=== PATIENT | female | born 1950 | race Caucasian/White ===

== ENCOUNTER → 2024-04-29 11:11 | Outpatient (CLI) | payer MEDICARE, SELFPAY ==
--- NOTE | 2024-04-29 11:13 | DI.RAD.S_ITS ---
PROCEDURE: XR DEXA AXIAL SKELETON INDICATIONS: LEFT THYROID NODULE / SCREENING FOR OSTEOPOROSIS COMPARISON: None. FINDINGS: Lumbar Spine: Bone mineral density 0.86 g/cm2, T score -1.5,. Left Hip: Bone mineral density 0.82 g/cm2, T score -1,. Left Femoral Neck: Bone mineral density 0.66 g/cm2, T score -1.8,. Left Forearm: Bone mineral density 0.63 g/cm2, T score -1,. Fracture Risk Calculation (when applicable): 10-year fracture risk of a major osteoporotic fracture 12 percent and of a hip fracture 2.5 percent. (T score greater or equal to -1.0 to: NORMAL) (T score from -1.1 to -2.4: OSTEOPENIA) (T score less than or equal to -2.5: OSTEOPOROSIS) IMPRESSION: Osteopenia with fracture risk as above. Follow-up guidelines as follows: Osteoporosis: Consider a repeat DEXA and Vertebral Fracture Assessment (VFA) exam in 2 years or sooner if medically necessary, to reassess this patient's status. Osteopenia: Consider a repeat DEXA in 2-3 years to reassess this patient's status, or if there is a new clinical indication. Normal: Consider a repeat DEXA in 5 years or sooner, or if there is a new clinical indication. All treatment decisions require clinical judgment and consideration of individual patient factors, including patient preferences, comorbidities, previous drug use, risk factors not captured in the FRAX model (e.g., frailty, falls, vitamin D deficiency, increased bone turnover, interval significant decline in bone density ) and possible under- or over-estimation of fracture risk by FRAX. In addition, the NOF Guide recommends that FDA-approved medical therapies be considered in postmenopausal women and men age >= 50 years with a: * Hip or vertebral (clinical or morphometric) fracture * T-score of <=-2.5 at the spine or hip * Ten-year fracture probability by FRAX of >= 3% for hip fracture or >=20% for major osteoporotic fracture. People with diagnosed cases of osteoporosis or at high risk for fracture should have regular bone mineral density tests. For patients eligible for Medicare, routine testing is allowed once every 2 years. The testing frequency can be increased to one year for patients who have rapidly progressing disease, those who are receiving or discontinuing medical therapy to restore bone mass, or have additional risk factors. Dictated by: Marck Matute M.D. on 04/29/2024 at 16:24 Approved by: Marck Matute M.D. on 04/29/2024 at 16:24
--- NOTE | 2024-04-29 11:13 | DI.US.S_ITS ---
PROCEDURE: US THYROID INDICATIONS: LEFT THYROID NODULE TECHNIQUE: Real-time scanning was performed of the thyroid gland, with image documentation. COMPARISON: [facility], CT, CT CHEST ABDOMEN PELVIS WITH CONTRAST, 01/24/2024, 12:49. FINDINGS: Thyroid: Right lobe measures 4.5 x 2.4 x 1.8 cm. Left lobe measures 5.5 x 1.9 x 1.8 cm. Isthmus is 0.6 cm thick. Echotexture is homogeneous. Nodule number: 1 Location: Left inferior pole Size: 1.5 x 1.0 x 1.2 cm. Composition: Cystic Echogenicity: Anechoic Shape: wider than tall. Margins: Smooth Echogenic foci: None Total points: 0 ACR TI-RADS category: TR 1 Nodule number: 2 Location: Right superior pole Size: 1.3 x 0.6 x 1.0 cm. Composition: Solid Echogenicity: Isoechoic Shape: wider than tall. Margins: Smooth Echogenic foci: None Total points: 3 ACR TI-RADS category: TR 3 IMPRESSION: Bilateral thyroid nodules, for which no further follow-up is necessary. ACR TI-RADS definitions and recommendations: TI-RADS 1 (benign): 0 points. FNA not needed. TI-RADS 2 (not suspicious): 2 points. FNA not needed. TI-RADS 3: 3 points. * FNA if 2.5 cm or larger, follow up if 1.5 cm or larger (at 1, 3, and 5 years). TI-RADS 4: 4-6 points. * FNA if 1.5 cm or larger, follow up if 1 cm or larger (at 1, 2, 3, and 5 years). TI-RADS 5: 7 points or more. * FNA if 1 cm or larger, follow up if 0.5 cm or larger (every year for 5 years). Dictated by: Doug Bailey M.D. on 04/30/2024 at 8:48 Approved by: Doug Bailey M.D. on 04/30/2024 at 8:53
== END ==
PROVIDERS: PCP Internal Medicine; Referring Provider Internal Medicine; Visit Provider Internal Medicine
DX: Z78.0 Asymptomatic menopausal state (principal); E04.2 Nontoxic multinodular goiter; M85.89 Other specified disorders of bone density and structure, multiple sites
CPT/HCPCS: 76536; 77080; 77081

== ENCOUNTER 2024-11-18 21:25 | Inpatient (IN) | payer MEDICARE, SELFPAY ==
[2024-11-18] VITALS (7 sets, daily range): BP systolic 81–98; BP diastolic 56–59; PULSE 71–108; RESP 22–36; TEMP 36.3; O2SAT 95–99; BMI 31.6
[2024-11-18 22:17] LABS: Hematocrit 45.7 % (36-46); Hemoglobin 15.3 g/dL (12.0-16.0); Lymphocytes Absolute Auto 1400 /uL (1100-4500); Mean Corpuscular HGB Conc 33.5 % (30-36); Mean Corpuscular Hemoglobin 29.5 PG (26-34); Mean Corpuscular Volume 88.1 fL (80-100); Platelet Count 626 X10^3/uL (150-400)
[2024-11-18 22:22] LABS: INR 1.2 (0.9-1.3); Prothrombin Time 14.1 SECONDS (9.4-12.5)
[2024-11-18 22:25] LABS: PTT Partial Thromboplastin Tim 35 SECONDS (25.1-36.5)
[2024-11-18 22:27] LABS: Alanine Aminotransferase 45 IU/L (<35); Albumin 4.0 g/dL (3.5-5.0); Albumin Globulin Ratio 1.3 (1.0-2.8); Alkaline Phosphatase 79 U/L (38-126); Blood Urea Nitrogen 27 mg/dL (7-17); Calcium 9.9 mg/dL (8.4-10.2); Carbon Dioxide 19 mmol/L (22-32); Chloride 102 mmol/L (98-107); Estimated Glomerular Filt Rate 41 mL/min (>60); Globulin 3.1 g/dL (1.7-4.1); Glucose 124 mg/dL (70-99); HEMOLYSIS < 15 (0-50); Lipase 33 U/L (23-300); Potassium 3.2 mmol/L (3.4-5.1); Sodium 139 mmol/L (137-145); Total Protein 7.1 g/dL (6.3-8.2)
[2024-11-18 22:28] LABS: Creatine Kinase 39 U/L (30-135); Magnesium 2.4 mg/dL (1.6-2.3)
[2024-11-18 22:31] LABS: Add Manual Diff / Slide Review SLIDE REVIEW
[2024-11-18 22:34] LABS: RBC Morphology Normal Morphology
[2024-11-18 22:39] LABS: NT-proBNP (BNP-Adult 18+) 2340 pg/mL (<450); Troponin I 0.025 ng/mL (0.01-0.034)
[2024-11-18] MEDS: SODIUM CHLORIDE 0.9% 1,000 ML 1000 ML IV ×2 (22:55→23:21)
[2024-11-18 23:10] LABS: Lactate (Lactic Acid) 4.5 mmol/L (0.7-2.1)
[2024-11-19] VITALS (135 sets, daily range): BP systolic 53–169; BP diastolic 31–96; PULSE 105–134; RESP 8–38; TEMP 36.3–37.3; O2SAT 32–100; BMI 31.6
[2024-11-19 00:29] LABS: Reflexed Lactate in 2 Hours Y
[2024-11-19] MEDS: POTASSIUM CHLORIDE IN WATER 10 MEQ/100 ML PIGGYBACK 100 MEQ IV (00:33)
[2024-11-19] MEDS: LACTATED RINGERS 1,000 ML 42 ML IV ×4 (01:15→04:59)
[2024-11-19] MEDS: CEFAZOLIN 2 GM/100 ML PREMIX 100 ML IV (01:23)
[2024-11-19] MEDS: ACETAMINOPHEN IV 1,000 MG/100 ML VIAL 400 MG IV (03:08)
[2024-11-19] MEDS: PIPERACILLIN/TAZO 4.5 GM in SODIUM CHLORIDE 0.9% 100 ML IV (03:12)
[2024-11-19 06:51] LABS: Add Manual Diff / Slide Review NO; Hematocrit 42.0 % (36-46); Hemoglobin 14.0 g/dL (12.0-16.0); Lymphocytes Absolute Auto 1100 /uL (1100-4500); Mean Corpuscular HGB Conc 33.3 % (30-36); Mean Corpuscular Hemoglobin 29.9 PG (26-34); Mean Corpuscular Volume 89.6 fL (80-100); Platelet Count 544 X10^3/uL (150-400)
[2024-11-19 06:59] LABS: PTT Partial Thromboplastin Tim 30 SECONDS (25.1-36.5)
[2024-11-19 07:02] LABS: Blood Urea Nitrogen 28 mg/dL (7-17); Calcium 8.0 mg/dL (8.4-10.2); Carbon Dioxide 17 mmol/L (22-32); Chloride 108 mmol/L (98-107); Estimated Glomerular Filt Rate 52 mL/min (>60); Glucose 121 mg/dL (70-99); HEMOLYSIS 20 (0-50); Potassium 4.4 mmol/L (3.4-5.1); Sodium 137 mmol/L (137-145)
[2024-11-19] MEDS: LACTATED RINGERS 1,000 ML 1000 ML IV (07:11)
[2024-11-19] MEDS: fentaNYL 1,000 MCG in DEXTROSE 5% IN WATER 230 ML 15.082 MCG IV (08:20)
[2024-11-19] MEDS: LACTATED RINGERS 1,000 ML 125 ML IV ×2 (08:44→16:12)
[2024-11-19] MEDS: PIPERACILLIN/TAZO 3.375 GM in SODIUM CHLORIDE 0.9% 100 ML IV ×3 (08:45→23:20)
[2024-11-19] MEDS: ENOXAPARIN 40 MG/0.4 ML SYRINGE SUBCUT (08:45)
[2024-11-19 08:47] LABS: Alanine Aminotransferase 29 IU/L (<35); Albumin 1.9 g/dL (3.5-5.0); Albumin Globulin Ratio 0.9 (1.0-2.8); Alkaline Phosphatase 40 U/L (38-126); Blood Urea Nitrogen 29 mg/dL (7-17); Calcium 8.3 mg/dL (8.4-10.2); Carbon Dioxide 18 mmol/L (22-32); Chloride 109 mmol/L (98-107); Estimated Glomerular Filt Rate 60 mL/min (>60); Globulin 2.1 g/dL (1.7-4.1); Glucose 101 mg/dL (70-99); HEMOLYSIS 39 (0-50); Magnesium 2.2 mg/dL (1.6-2.3); Potassium 4.9 mmol/L (3.4-5.1); Sodium 135 mmol/L (137-145); Total Protein 4.0 g/dL (6.3-8.2)
[2024-11-19 08:48] LABS: Add Manual Diff / Slide Review NO; Hematocrit 44.2 % (36-46); Hemoglobin 14.7 g/dL (12.0-16.0); Lactate (Lactic Acid) 4.2 mmol/L (0.7-2.1); Lymphocytes Absolute Auto 1500 /uL (1100-4500); Mean Corpuscular HGB Conc 33.1 % (30-36); Mean Corpuscular Hemoglobin 29.4 PG (26-34); Mean Corpuscular Volume 88.7 fL (80-100); Platelet Count 523 X10^3/uL (150-400)
[2024-11-19] MEDS: NOREPINEPHRINE BITARTRATE/D5W 4 MG/250 ML PLAST..BAG 32.319 MG IV (09:09)
[2024-11-19 09:35] LABS: MRSA (Nasal) PCR NOT DETECTED (Not Detect)
[2024-11-19 09:44] LABS: Blood Gas Collection Site Arterial Line; Blood Gas Mode Pressure Control; Delivery System Adult Ventilator; HCO3 ABG 18 mmol/L (23-27); Oxygen Saturation ABG 99 % (95-100); PCO2 ABG 35.9 mmHg (35-45); PO2 ABG 132 mmHg (80-100); TCO2 ABG 17 mmol/L (23-27)
[2024-11-19 10:06] LABS: Reflexed Lactate in 2 Hours Y
[2024-11-19] MEDS: PANTOPRAZOLE 40 MG VIAL IV (10:49)
[2024-11-19 11:05] LABS: Lactate 2HR (Lactic Acid Rflx) 3.2 mmol/L (0.7-2.1)
[2024-11-19 11:24] LABS: Procalcitonin 35.4 ng/mL (<0.5)
[2024-11-19] MEDS: ALBUMIN HUMAN 12.5 GM/250 ML VIAL IV (11:44)
[2024-11-19] MEDS: CHLORHEXIDINE GLUCONATE 15 ML CUP PO ×3 (11:44→23:23)
[2024-11-19] MEDS: VASOPRESSIN 40 UNIT in SODIUM CHLORIDE 0.9% 100 ML 4.5 UNIT IV (11:54)
[2024-11-19] MEDS: NOREPINEPHRINE BITARTRATE/D5W 4 MG/250 ML PLAST..BAG 25.855 MG IV (13:30)
[2024-11-19 14:22] LABS: Blood Gas Collection Site Arterial Line; HCO3 ABG 16 mmol/L (23-27); Oxygen Saturation ABG 98 % (95-100); PCO2 ABG 26.3 mmHg (35-45); PO2 ABG 101 mmHg (80-100); TCO2 ABG 16 mmol/L (23-27)
[2024-11-19 14:36] LABS: Lactate (Lactic Acid) 3.3 mmol/L (0.7-2.1)
[2024-11-19 15:56] LABS: Reflexed Lactate in 2 Hours Y
[2024-11-19 20:36] LABS: Lactate 2HR (Lactic Acid Rflx) 2.9 mmol/L (0.7-2.1)
[2024-11-19 20:57] LABS: Hematocrit 38.0 % (36-46); Hemoglobin 13.0 g/dL (12.0-16.0); Mean Corpuscular HGB Conc 34.2 % (30-36); Mean Corpuscular Hemoglobin 30.0 PG (26-34); Mean Corpuscular Volume 87.7 fL (80-100); Platelet Count 482 X10^3/uL (150-400)
[2024-11-19 21:03] LABS: Add Manual Diff / Slide Review YES
[2024-11-19 21:04] LABS: Alanine Aminotransferase 89 IU/L (<35); Albumin 2.2 g/dL (3.5-5.0); Albumin Globulin Ratio 1.0 (1.0-2.8); Alkaline Phosphatase 48 U/L (38-126); Blood Urea Nitrogen 35 mg/dL (7-17); Calcium 7.8 mg/dL (8.4-10.2); Carbon Dioxide 21 mmol/L (22-32); Chloride 106 mmol/L (98-107); Estimated Glomerular Filt Rate 30 mL/min (>60); Globulin 2.3 g/dL (1.7-4.1); Glucose 71 mg/dL (70-99); HEMOLYSIS < 15 (0-50); Magnesium 2.2 mg/dL (1.6-2.3); Phosphorous 3.3 mg/dL (2.8-4.1); Potassium 4.7 mmol/L (3.4-5.1); Sodium 135 mmol/L (137-145); Total Protein 4.5 g/dL (6.3-8.2)
[2024-11-19 21:13] LABS: Band Neutrophils Percent 35.0 % (3-7); Lymphocytes Percent Manual 23.0 % (25-45); Monocytes Percent Manual 7.0 % (2-11); Neutrophils Absolute Manual 5880 /uL (3000-5900); Segmented Neutrophils Percent 35.0 % (38-70); Total Cells Counted 100
[2024-11-19 21:14] LABS: RBC Morphology Normal Morphology
[2024-11-19 21:30] LABS: INR 1.9 (0.9-1.3); Prothrombin Time 21.6 SECONDS (9.4-12.5)
[2024-11-19 21:33] LABS: PTT Partial Thromboplastin Tim 44 SECONDS (25.1-36.5)
[2024-11-19] MEDS: DEXTROSE 5%-LACTATED RINGERS 1,000 ML 125 ML IV (21:43)
[2024-11-20] VITALS (109 sets, daily range): BP systolic 80–133; BP diastolic 51–72; PULSE 87–133; RESP 0–22; TEMP 36.3–38.9; O2SAT 93–98
[2024-11-20] MEDS: fentaNYL 1,000 MCG in DEXTROSE 5% IN WATER 230 ML 15.082 MCG IV ×2 (01:03→17:45)
[2024-11-20 04:59] LABS: Blood Gas Collection Site Arterial Line; HCO3 ABG 18 mmol/L (23-27); Oxygen Saturation ABG 97 % (95-100); PCO2 ABG 23.5 mmHg (35-45); PO2 ABG 82 mmHg (80-100); TCO2 ABG 17 mmol/L (23-27)
[2024-11-20] MEDS: DEXTROSE 5%-LACTATED RINGERS 1,000 ML 125 ML IV ×2 (05:29→14:09)
[2024-11-20] MEDS: PIPERACILLIN/TAZO 3.375 GM in SODIUM CHLORIDE 0.9% 100 ML IV ×2 (06:20→16:04)
[2024-11-20] MEDS: CHLORHEXIDINE GLUCONATE 15 ML CUP PO ×3 (06:20→18:45)
[2024-11-20 06:41] LABS: Blood Urea Nitrogen 42 mg/dL (7-17); Calcium 7.8 mg/dL (8.4-10.2); Carbon Dioxide 19 mmol/L (22-32); Chloride 106 mmol/L (98-107); Estimated Glomerular Filt Rate 21 mL/min (>60); Glucose 108 mg/dL (70-99); HEMOLYSIS < 15 (0-50); Magnesium 2.4 mg/dL (1.6-2.3); Potassium 4.4 mmol/L (3.4-5.1); Sodium 135 mmol/L (137-145)
[2024-11-20 06:53] LABS: Hematocrit 35.7 % (36-46); Hemoglobin 12.1 g/dL (12.0-16.0); Mean Corpuscular HGB Conc 33.9 % (30-36); Mean Corpuscular Hemoglobin 29.7 PG (26-34); Mean Corpuscular Volume 87.6 fL (80-100); Platelet Count 462 X10^3/uL (150-400)
[2024-11-20 06:55] LABS: Add Manual Diff / Slide Review YES
[2024-11-20 07:06] LABS: Atypical Lymphocytes Percent 2.0 %; Band Neutrophils Percent 15.0 % (3-7); Lymphocytes Percent Manual 21.0 % (25-45); Monocytes Percent Manual 4.0 % (2-11); Neutrophils Absolute Manual 8249 /uL (3000-5900); RBC Morphology Normal Morphology; Segmented Neutrophils Percent 58.0 % (38-70); Total Cells Counted 100
[2024-11-20] MEDS: NOREPINEPHRINE BITARTRATE/D5W 4 MG/250 ML PLAST..BAG 22.623 MG IV (08:52)
[2024-11-20] MEDS: LACTATED RINGERS 1,000 ML 1000 ML IV (09:00)
[2024-11-20 11:02] LABS: Alanine Aminotransferase 67 IU/L (<35); Albumin 1.9 g/dL (3.5-5.0); Albumin Globulin Ratio 0.8 (1.0-2.8); Alkaline Phosphatase 48 U/L (38-126); Globulin 2.4 g/dL (1.7-4.1); HEMOLYSIS < 15 (0-50); Total Protein 4.3 g/dL (6.3-8.2)
[2024-11-20 11:04] LABS: Lactate (Lactic Acid) 3.3 mmol/L (0.7-2.1)
[2024-11-20] MEDS: PANTOPRAZOLE 40 MG VIAL IV (11:12)
[2024-11-20] MEDS: HYDROMORPHONE 1 MG INJ IV (12:06)
[2024-11-20 12:23] LABS: Reflexed Lactate in 2 Hours Y
[2024-11-20] MEDS: ACETAMINOPHEN IV 1,000 MG/100 ML VIAL 400 MG IV (12:25)
[2024-11-20] MEDS: SODIUM BICARB 8.4% VIAL 150 MEQ in DEXTROSE 5% WATER 1,000 ML 75 MEQ IV (12:52)
[2024-11-20 13:18] LABS: Lactate 2HR (Lactic Acid Rflx) 2.7 mmol/L (0.7-2.1)
[2024-11-20] MEDS: CARBOXYMETHYLCELLULOSE DROPS 1 DROPS EYE-BOTH (14:16)
[2024-11-20] MEDS: VASOPRESSIN 40 UNIT in SODIUM CHLORIDE 0.9% 100 ML 4.5 UNIT IV (15:26)
[2024-11-20] MEDS: ALBUMIN HUMAN 12.5 GM/250 ML VIAL IV (15:26)
[2024-11-20] MEDS: NOREPINEPHRINE BITARTRATE/D5W 4 MG/250 ML PLAST..BAG 32.319 MG IV (16:32)
[2024-11-20 19:26] LABS: Alanine Aminotransferase 55 IU/L (<35); Albumin 2.1 g/dL (3.5-5.0); Albumin Globulin Ratio 1.0 (1.0-2.8); Alkaline Phosphatase 51 U/L (38-126); Blood Urea Nitrogen 44 mg/dL (7-17); Calcium 7.3 mg/dL (8.4-10.2); Carbon Dioxide 23 mmol/L (22-32); Chloride 102 mmol/L (98-107); Estimated Glomerular Filt Rate 21 mL/min (>60); Globulin 2.2 g/dL (1.7-4.1); Glucose 130 mg/dL (70-99); HEMOLYSIS < 15 (0-50); Lactate (Lactic Acid) 2.7 mmol/L (0.7-2.1); Potassium 3.8 mmol/L (3.4-5.1); Sodium 133 mmol/L (137-145); Total Protein 4.3 g/dL (6.3-8.2)
[2024-11-20 20:44] LABS: Reflexed Lactate in 2 Hours Y
[2024-11-20] MEDS: SODIUM BICARB 8.4% VIAL 150 MEQ in DEXTROSE 5% WATER 1,000 ML IV (21:11)
[2024-11-20 21:57] LABS: Blood Gas Collection Site Arterial Line; Blood Gas Mode SIMV/PC; Delivery System Adult Ventilator; HCO3 ABG 25 mmol/L (23-27); Oxygen Saturation ABG 96 % (95-100); PCO2 ABG 34.4 mmHg (35-45); PEEP 5; PO2 ABG 77 mmHg (80-100); TCO2 ABG 23 mmol/L (23-27)
[2024-11-20 21:58] LABS: Lactate 2HR (Lactic Acid Rflx) 2.9 mmol/L (0.7-2.1)
[2024-11-21] VITALS (86 sets, daily range): BP systolic 97–146; BP diastolic 53–79; PULSE 74–97; RESP 10–30; TEMP 36.5; O2SAT 93–99
[2024-11-21] MEDS: PIPERACILLIN/TAZO 3.375 GM in SODIUM CHLORIDE 0.9% 100 ML IV ×3 (00:03→20:14)
[2024-11-21] MEDS: CHLORHEXIDINE GLUCONATE 15 ML CUP PO ×2 (00:06→05:05)
[2024-11-21] MEDS: NOREPINEPHRINE BITARTRATE/D5W 4 MG/250 ML PLAST..BAG 9.696 MG IV (03:26)
[2024-11-21] MEDS: SODIUM BICARB 8.4% VIAL 150 MEQ in DEXTROSE 5% WATER 1,000 ML IV (04:44)
[2024-11-21 05:14] LABS: Add Manual Diff / Slide Review NO; Hematocrit 25.3 % (36-46); Hemoglobin 8.7 g/dL (12.0-16.0); Lymphocytes Absolute Auto 1300 /uL (1100-4500); Mean Corpuscular HGB Conc 34.4 % (30-36); Mean Corpuscular Hemoglobin 29.7 PG (26-34); Mean Corpuscular Volume 86.2 fL (80-100); Platelet Count 281 X10^3/uL (150-400)
[2024-11-21 05:20] LABS: Blood Urea Nitrogen 42 mg/dL (7-17); Calcium 7.3 mg/dL (8.4-10.2); Carbon Dioxide 28 mmol/L (22-32); Chloride 98 mmol/L (98-107); Estimated Glomerular Filt Rate 28 mL/min (>60); Glucose 114 mg/dL (70-99); HEMOLYSIS < 15 (0-50); Potassium 3.3 mmol/L (3.4-5.1); Sodium 133 mmol/L (137-145)
[2024-11-21 05:40] LABS: Magnesium 2.2 mg/dL (1.6-2.3)
[2024-11-21 05:54] LABS: Blood Gas Collection Site Arterial Line; Blood Gas Mode SIMV/PC; Delivery System Adult Ventilator; HCO3 ABG 25 mmol/L (23-27); Oxygen Saturation ABG 96 % (95-100); PCO2 ABG 34.4 mmHg (35-45); PEEP 5; PO2 ABG 77 mmHg (80-100); TCO2 ABG 23 mmol/L (23-27)
[2024-11-21] MEDS: PANTOPRAZOLE 40 MG VIAL IV (09:53)
[2024-11-21] MEDS: POTASSIUM CHLORIDE IN WATER 10 MEQ/100 ML PIGGYBACK 100 MEQ IV ×8 (11:21→21:47)
[2024-11-21] MEDS: BENZOCAINE/MENTHOL 1 LOZ PKT 1 EACH PO ×2 (11:21→16:44)
[2024-11-21] MEDS: ENOXAPARIN 30 MG/0.3 ML SYRINGE SUBCUT (11:21)
[2024-11-21] MEDS: ONDANSETRON 4 MG/2 ML INJ IV ×2 (14:33→20:14)
[2024-11-21] MEDS: LACTATED RINGERS 1,000 ML 80 ML IV (16:44)
[2024-11-21 17:24] LABS: Blood Urea Nitrogen 35 mg/dL (7-17); Calcium 7.6 mg/dL (8.4-10.2); Carbon Dioxide 33 mmol/L (22-32); Chloride 99 mmol/L (98-107); Estimated Glomerular Filt Rate 42 mL/min (>60); Glucose 79 mg/dL (70-99); HEMOLYSIS < 15 (0-50); Potassium 3.2 mmol/L (3.4-5.1); Sodium 134 mmol/L (137-145)
[2024-11-21] MEDS: HYDROMORPHONE 1 MG INJ IV (18:24)
[2024-11-21] MEDS: DEXTROSE 5%-LACTATED RINGERS 1,000 ML 84 ML IV (21:05)
[2024-11-21 21:29] LABS: Add Manual Diff / Slide Review NO; Hematocrit 24.9 % (36-46); Hemoglobin 8.6 g/dL (12.0-16.0); Lymphocytes Absolute Auto 1200 /uL (1100-4500); Mean Corpuscular HGB Conc 34.7 % (30-36); Mean Corpuscular Hemoglobin 29.6 PG (26-34); Mean Corpuscular Volume 85.5 fL (80-100); Platelet Count 250 X10^3/uL (150-400)
[2024-11-21 21:35] LABS: INR 1.1 (0.9-1.3); Prothrombin Time 12.4 SECONDS (9.4-12.5)
[2024-11-21 21:37] LABS: PTT Partial Thromboplastin Tim 35 SECONDS (25.1-36.5)
[2024-11-21 21:39] LABS: Alanine Aminotransferase 44 IU/L (<35); Albumin 2.1 g/dL (3.5-5.0); Albumin Globulin Ratio 0.8 (1.0-2.8); Alkaline Phosphatase 64 U/L (38-126); Blood Urea Nitrogen 31 mg/dL (7-17); Calcium 7.8 mg/dL (8.4-10.2); Carbon Dioxide 32 mmol/L (22-32); Chloride 101 mmol/L (98-107); Estimated Glomerular Filt Rate 48 mL/min (>60); Globulin 2.5 g/dL (1.7-4.1); Glucose 61 mg/dL (70-99); HEMOLYSIS < 15 (0-50); Magnesium 2.1 mg/dL (1.6-2.3); Phosphorous 3.3 mg/dL (2.8-4.1); Potassium 3.5 mmol/L (3.4-5.1); Sodium 136 mmol/L (137-145); Total Protein 4.6 g/dL (6.3-8.2)
[2024-11-21] MEDS: ACETAMINOPHEN IV 1,000 MG/100 ML VIAL 400 MG IV (23:26)
[2024-11-22] VITALS (87 sets, daily range): BP systolic 106–174; BP diastolic 53–78; PULSE 74–96; RESP 13–31; TEMP 36.1–36.5; O2SAT 95–98
[2024-11-22 00:32] LABS: Alanine Aminotransferase 42 IU/L (<35); Albumin 2.0 g/dL (3.5-5.0); Albumin Globulin Ratio 0.8 (1.0-2.8); Alkaline Phosphatase 60 U/L (38-126); Blood Urea Nitrogen 29 mg/dL (7-17); Calcium 7.7 mg/dL (8.4-10.2); Carbon Dioxide 30 mmol/L (22-32); Chloride 103 mmol/L (98-107); Estimated Glomerular Filt Rate 49 mL/min (>60); Globulin 2.4 g/dL (1.7-4.1); Glucose 67 mg/dL (70-99); HEMOLYSIS < 15 (0-50); Potassium 3.4 mmol/L (3.4-5.1); Sodium 136 mmol/L (137-145); Total Protein 4.4 g/dL (6.3-8.2)
[2024-11-22] MEDS: DEXTROSE 10 % IN WATER 100 ML 1200 ML IV (01:28)
[2024-11-22] MEDS: ONDANSETRON 4 MG/2 ML INJ IV ×2 (01:36→04:58)
[2024-11-22] MEDS: SODIUM CHLORIDE 0.9% FLUSH 10 ML IV ×5 (01:37→23:35)
[2024-11-22] MEDS: PIPERACILLIN/TAZO 3.375 GM in SODIUM CHLORIDE 0.9% 100 ML IV ×3 (04:21→20:22)
[2024-11-22 04:50] LABS: Add Manual Diff / Slide Review NO; Hematocrit 24.7 % (36-46); Hemoglobin 8.4 g/dL (12.0-16.0); Lymphocytes Absolute Auto 1000 /uL (1100-4500); Mean Corpuscular HGB Conc 34.1 % (30-36); Mean Corpuscular Hemoglobin 29.3 PG (26-34); Mean Corpuscular Volume 86.2 fL (80-100); Platelet Count 242 X10^3/uL (150-400)
[2024-11-22 05:06] LABS: Lactate (Lactic Acid) 1.3 mmol/L (0.7-2.1)
[2024-11-22 05:21] LABS: Alanine Aminotransferase 42 IU/L (<35); Albumin 2.1 g/dL (3.5-5.0); Albumin Globulin Ratio 0.9 (1.0-2.8); Alkaline Phosphatase 64 U/L (38-126); Blood Urea Nitrogen 26 mg/dL (7-17); Calcium 7.9 mg/dL (8.4-10.2); Carbon Dioxide 31 mmol/L (22-32); Chloride 103 mmol/L (98-107); Estimated Glomerular Filt Rate 50 mL/min (>60); Globulin 2.4 g/dL (1.7-4.1); Glucose 71 mg/dL (70-99); HEMOLYSIS < 15 (0-50); Magnesium 2.1 mg/dL (1.6-2.3); Phosphorous 3.0 mg/dL (2.8-4.1); Potassium 3.3 mmol/L (3.4-5.1); Sodium 137 mmol/L (137-145); Total Protein 4.5 g/dL (6.3-8.2)
[2024-11-22] MEDS: POTASSIUM CHLORIDE IN WATER 10 MEQ/100 ML PIGGYBACK 100 MEQ IV ×4 (07:59→11:15)
[2024-11-22] MEDS: DEXTROSE 5%-LACTATED RINGERS 1,000 ML 84 ML IV (09:12)
[2024-11-22] MEDS: ACETAMINOPHEN 325 MG TABLET 650 MG PO (15:32)
[2024-11-22] MEDS: TRAZODONE 50 MG TABLET PO (21:42)
[2024-11-23] VITALS (38 sets, daily range): BP systolic 122–157; BP diastolic 56–68; PULSE 78–97; RESP 17–32; TEMP 35.7–36.8; O2SAT 93–97
[2024-11-23 00:24] LABS: Alanine Aminotransferase 41 IU/L (<35); Albumin 2.3 g/dL (3.5-5.0); Albumin Globulin Ratio 0.9 (1.0-2.8); Alkaline Phosphatase 77 U/L (38-126); Blood Urea Nitrogen 18 mg/dL (7-17); Calcium 8.4 mg/dL (8.4-10.2); Carbon Dioxide 28 mmol/L (22-32); Chloride 105 mmol/L (98-107); Estimated Glomerular Filt Rate > 60 mL/min (>60); Globulin 2.7 g/dL (1.7-4.1); Glucose 59 mg/dL (70-99); HEMOLYSIS < 15 (0-50); Potassium 3.1 mmol/L (3.4-5.1); Sodium 139 mmol/L (137-145); Total Protein 5.0 g/dL (6.3-8.2)
[2024-11-23] MEDS: DEXTROSE 10 % IN WATER 100 ML 1200 ML IV (00:54)
[2024-11-23] MEDS: POTASSIUM CHLORIDE IN WATER 10 MEQ/100 ML PIGGYBACK 100 MEQ IV ×6 (01:18→06:43)
[2024-11-23] MEDS: PIPERACILLIN/TAZO 3.375 GM in SODIUM CHLORIDE 0.9% 100 ML IV ×3 (04:09→21:24)
[2024-11-23] MEDS: SODIUM CHLORIDE 0.9% FLUSH 10 ML IV ×2 (05:37→21:24)
[2024-11-23 06:29] LABS: Alanine Aminotransferase 41 IU/L (<35); Albumin 2.3 g/dL (3.5-5.0); Albumin Globulin Ratio 0.8 (1.0-2.8); Alkaline Phosphatase 83 U/L (38-126); Blood Urea Nitrogen 16 mg/dL (7-17); Calcium 8.4 mg/dL (8.4-10.2); Carbon Dioxide 27 mmol/L (22-32); Chloride 105 mmol/L (98-107); Estimated Glomerular Filt Rate > 60 mL/min (>60); Globulin 2.8 g/dL (1.7-4.1); Glucose 56 mg/dL (70-99); HEMOLYSIS < 15 (0-50); Potassium 3.6 mmol/L (3.4-5.1); Sodium 137 mmol/L (137-145); Total Protein 5.1 g/dL (6.3-8.2)
[2024-11-23] MEDS: ACETAMINOPHEN 325 MG TABLET 650 MG PO (14:11)
[2024-11-23 14:14] LABS: Blood Urea Nitrogen 13 mg/dL (7-17); Calcium 8.6 mg/dL (8.4-10.2); Carbon Dioxide 28 mmol/L (22-32); Chloride 105 mmol/L (98-107); Estimated Glomerular Filt Rate > 60 mL/min (>60); Glucose 80 mg/dL (70-99); HEMOLYSIS < 15 (0-50); Potassium 3.5 mmol/L (3.4-5.1); Sodium 137 mmol/L (137-145)
[2024-11-23] MEDS: TRAZODONE 50 MG TABLET PO (21:24)
[2024-11-24] VITALS (9 sets, daily range): BP systolic 120–151; BP diastolic 56–69; PULSE 82–160; RESP 14–18; TEMP 35.7–37.3; O2SAT 92–96
[2024-11-24] MEDS: METOPROLOL TARTRATE 5 MG/5 ML INJ IV (00:32)
[2024-11-24] MEDS: PIPERACILLIN/TAZO 3.375 GM in SODIUM CHLORIDE 0.9% 100 ML IV ×3 (04:26→20:21)
[2024-11-24] MEDS: ACETAMINOPHEN 325 MG TABLET 650 MG PO (04:43)
[2024-11-24] MEDS: HYDROMORPHONE 1 MG INJ IV ×2 (05:42→16:57)
[2024-11-24 13:07] LABS: Hematocrit 29.0 % (36-46); Hemoglobin 9.7 g/dL (12.0-16.0); Mean Corpuscular HGB Conc 33.6 % (30-36); Mean Corpuscular Hemoglobin 28.9 PG (26-34); Mean Corpuscular Volume 86.0 fL (80-100); Platelet Count 465 X10^3/uL (150-400)
[2024-11-24 16:07] LABS: Alanine Aminotransferase 34 IU/L (<35); Albumin 2.6 g/dL (3.5-5.0); Albumin Globulin Ratio 0.9 (1.0-2.8); Alkaline Phosphatase 90 U/L (38-126); Blood Urea Nitrogen 11 mg/dL (7-17); Calcium 8.6 mg/dL (8.4-10.2); Carbon Dioxide 27 mmol/L (22-32); Chloride 105 mmol/L (98-107); Estimated Glomerular Filt Rate > 60 mL/min (>60); Globulin 3.0 g/dL (1.7-4.1); Glucose 113 mg/dL (70-99); HEMOLYSIS 18 (0-50); Potassium 2.8 mmol/L (3.4-5.1); Sodium 138 mmol/L (137-145); Total Protein 5.6 g/dL (6.3-8.2)
[2024-11-24 16:17] LABS: NT-proBNP (BNP-Adult 18+) 2140 pg/mL (<450)
[2024-11-24 16:19] LABS: Troponin I < 0.012 ng/mL (0.01-0.034)
[2024-11-24 16:38] LABS: TSH w/ Reflex to FT4 1.43 uIU/mL (0.47-4.68)
[2024-11-24 17:14] LABS: Carcinoembryonic Antigen 0.8 ng/mL (0.1-3.0)
[2024-11-24] MEDS: POTASSIUM CHLORIDE 20 MEQ TAB 40 MEQ PO ×2 (18:31→23:40)
[2024-11-24] MEDS: TRAZODONE 50 MG TABLET PO (22:22)
[2024-11-24] MEDS: SODIUM CHLORIDE 0.9% FLUSH 10 ML IV (22:22)
[2024-11-24] MEDS: ONDANSETRON 4 MG/2 ML INJ IV (23:51)
[2024-11-25] VITALS (9 sets, daily range): BP systolic 106–145; BP diastolic 51–70; PULSE 80–95; RESP 16–20; TEMP 35.7–36.4; O2SAT 93–98
[2024-11-25 04:57] LABS: Add Manual Diff / Slide Review NO; Hematocrit 26.9 % (36-46); Hemoglobin 9.1 g/dL (12.0-16.0); Lymphocytes Absolute Auto 1400 /uL (1100-4500); Mean Corpuscular HGB Conc 33.9 % (30-36); Mean Corpuscular Hemoglobin 29.2 PG (26-34); Mean Corpuscular Volume 86.1 fL (80-100); Platelet Count 502 X10^3/uL (150-400)
[2024-11-25 05:07] LABS: Blood Urea Nitrogen 10 mg/dL (7-17); Calcium 8.5 mg/dL (8.4-10.2); Carbon Dioxide 25 mmol/L (22-32); Chloride 105 mmol/L (98-107); Estimated Glomerular Filt Rate > 60 mL/min (>60); Glucose 92 mg/dL (70-99); HEMOLYSIS < 15 (0-50); Potassium 3.3 mmol/L (3.4-5.1); Sodium 135 mmol/L (137-145)
[2024-11-25] MEDS: PIPERACILLIN/TAZO 3.375 GM in SODIUM CHLORIDE 0.9% 100 ML IV ×3 (05:35→23:19)
[2024-11-25] MEDS: HYDROMORPHONE 1 MG INJ IV (05:37)
[2024-11-25 10:04] LABS: Appearance Urine UA CLEAR; Bilirubin Urine UA NEGATIVE (NEGATIVE); Color Urine UA YELLOW; Glucose Urine UA NEGATIVE (Negative); Ketones Urine UA TRACE (NEGATIVE); Leukocyte Esterase Urine UA NEGATIVE (NEGATIVE); Nitrite Urine UA NEGATIVE (Negative); Occult Blood Urine UA TRACE-INTACT (Negative); Protein Urine UA 1+ (Negative); Specific Gravity Urine UA 1.015 (1.000-1.035); Urobilinogen Urine UA 0.2 E.U./dL (0.2)
[2024-11-25] MEDS: ENOXAPARIN 40 MG/0.4 ML SYRINGE SUBCUT (10:21)
[2024-11-25 10:23] LABS: pH Urine UA 6.5 (4.5-8.0)
[2024-11-25 10:24] LABS: Culture Indicated Urine Cult Not Indicated
[2024-11-25] MEDS: POTASSIUM CHLORIDE IN WATER 10 MEQ/100 ML PIGGYBACK 100 MEQ IV ×4 (10:30→14:28)
[2024-11-25] MEDS: ACETAMINOPHEN 325 MG TABLET 650 MG PO ×2 (13:08→21:37)
[2024-11-25] MEDS: ONDANSETRON 4 MG/2 ML INJ IV (13:34)
[2024-11-25] MEDS: NYSTATIN SUSP 500,000 UNIT/5 ML UDC 500000 UNIT PO ×2 (17:54→21:36)
[2024-11-25] MEDS: TRAZODONE 50 MG TABLET PO (21:37)
[2024-11-25] MEDS: SODIUM CHLORIDE 0.9% FLUSH 10 ML IV (21:37)
[2024-11-26] VITALS (8 sets, daily range): BP systolic 117–131; BP diastolic 45–60; PULSE 79–94; RESP 16–18; TEMP 35.8–36.6; O2SAT 93–96
[2024-11-26] MEDS: PIPERACILLIN/TAZO 3.375 GM in SODIUM CHLORIDE 0.9% 100 ML IV ×3 (08:39→23:32)
[2024-11-26] MEDS: ENOXAPARIN 40 MG/0.4 ML SYRINGE SUBCUT (08:40)
[2024-11-26] MEDS: NYSTATIN SUSP 500,000 UNIT/5 ML UDC 500000 UNIT PO ×3 (08:40→21:43)
[2024-11-26] MEDS: SODIUM CHLORIDE 0.9% FLUSH 10 ML IV ×2 (09:17→21:45)
[2024-11-26 11:24] LABS: Hematocrit 26.3 % (36-46); Hemoglobin 8.9 g/dL (12.0-16.0); Mean Corpuscular HGB Conc 33.7 % (30-36); Mean Corpuscular Hemoglobin 28.9 PG (26-34); Mean Corpuscular Volume 85.6 fL (80-100); Platelet Count 631 X10^3/uL (150-400)
[2024-11-26 11:25] LABS: Add Manual Diff / Slide Review YES
[2024-11-26 11:34] LABS: Alanine Aminotransferase 23 IU/L (<35); Albumin 2.5 g/dL (3.5-5.0); Albumin Globulin Ratio 0.9 (1.0-2.8); Alkaline Phosphatase 93 U/L (38-126); Blood Urea Nitrogen 13 mg/dL (7-17); Calcium 8.5 mg/dL (8.4-10.2); Carbon Dioxide 24 mmol/L (22-32); Chloride 106 mmol/L (98-107); Estimated Glomerular Filt Rate > 60 mL/min (>60); Globulin 2.8 g/dL (1.7-4.1); Glucose 91 mg/dL (70-99); HEMOLYSIS < 15 (0-50); Magnesium 1.6 mg/dL (1.6-2.3); Potassium 3.6 mmol/L (3.4-5.1); Sodium 135 mmol/L (137-145); Total Protein 5.3 g/dL (6.3-8.2)
[2024-11-26] MEDS: HYDROMORPHONE 1 MG INJ IV ×2 (11:46→14:33)
[2024-11-26 11:47] LABS: Band Neutrophils Percent 11.0 % (3-7); Lymphocytes Percent Manual 12.0 % (25-45); Monocytes Percent Manual 3.0 % (2-11); Neutrophils Absolute Manual 15470 /uL (3000-5900); RBC Morphology Normal Morphology; Segmented Neutrophils Percent 74.0 % (38-70); Total Cells Counted 100
[2024-11-26] MEDS: ONDANSETRON 4 MG/2 ML INJ IV (13:35)
[2024-11-26] MEDS: MAGNESIUM SULFATE 2 GM/50 ML PIGGYBACK IV (15:05)
[2024-11-26] MEDS: HYDROMORPHONE 1 MG INJ 2 MG IV (20:36)
[2024-11-26] MEDS: ACETAMINOPHEN 325 MG TABLET 650 MG PO (21:43)
[2024-11-26] MEDS: TRAZODONE 50 MG TABLET PO (21:44)
[2024-11-27] VITALS (8 sets, daily range): BP systolic 117–157; BP diastolic 56–69; PULSE 79–95; RESP 16–79; TEMP 35.9–36.6; O2SAT 92–95
[2024-11-27 05:39] LABS: Add Manual Diff / Slide Review NO; Hematocrit 26.9 % (36-46); Hemoglobin 9.0 g/dL (12.0-16.0); Lymphocytes Absolute Auto 1500 /uL (1100-4500); Mean Corpuscular HGB Conc 33.4 % (30-36); Mean Corpuscular Hemoglobin 28.7 PG (26-34); Mean Corpuscular Volume 85.7 fL (80-100); Platelet Count 707 X10^3/uL (150-400)
[2024-11-27 05:50] LABS: Alanine Aminotransferase 23 IU/L (<35); Albumin 2.6 g/dL (3.5-5.0); Albumin Globulin Ratio 0.9 (1.0-2.8); Alkaline Phosphatase 102 U/L (38-126); Blood Urea Nitrogen 15 mg/dL (7-17); Calcium 8.7 mg/dL (8.4-10.2); Carbon Dioxide 26 mmol/L (22-32); Chloride 106 mmol/L (98-107); Estimated Glomerular Filt Rate > 60 mL/min (>60); Globulin 3.0 g/dL (1.7-4.1); Glucose 76 mg/dL (70-99); HEMOLYSIS < 15 (0-50); Magnesium 2.0 mg/dL (1.6-2.3); Potassium 3.1 mmol/L (3.4-5.1); Sodium 137 mmol/L (137-145); Total Protein 5.6 g/dL (6.3-8.2)
[2024-11-27] MEDS: HYDROMORPHONE 1 MG INJ 2 MG IV (07:16)
[2024-11-27] MEDS: PIPERACILLIN/TAZO 3.375 GM in SODIUM CHLORIDE 0.9% 100 ML IV ×3 (08:35→23:28)
[2024-11-27] MEDS: NYSTATIN SUSP 500,000 UNIT/5 ML UDC 500000 UNIT PO ×3 (08:36→18:23)
[2024-11-27] MEDS: SODIUM CHLORIDE 0.9% FLUSH 10 ML IV ×2 (08:36→23:28)
[2024-11-27] MEDS: ACETAMINOPHEN 325 MG TABLET 650 MG PO (11:47)
[2024-11-27] MEDS: HYDROMORPHONE 2 MG INJ IV ×2 (12:04→16:25)
[2024-11-27] MEDS: POTASSIUM CHLORIDE IN WATER 10 MEQ/100 ML PIGGYBACK 100 MEQ IV ×4 (14:00→18:28)
[2024-11-27] MEDS: TRAZODONE 50 MG TABLET PO (23:26)
[2024-11-27] MEDS: ENOXAPARIN 40 MG/0.4 ML SYRINGE SUBCUT (23:26)
[2024-11-27] MEDS: HYDROCODONE/ACET 5/325 TABLET 1 TAB PO (23:26)
[2024-11-28 04:00] VITALS: BP 115/54; PULSE 87; RESP 18; TEMP 36.1; O2SAT 95
[2024-11-28] MEDS: ACETAMINOPHEN 325 MG TABLET 650 MG PO (04:48)
[2024-11-28] MEDS: HYDROMORPHONE 2 MG INJ IV ×2 (05:59→14:12)
[2024-11-28] MEDS: ONDANSETRON 4 MG/2 ML INJ IV (06:28)
[2024-11-28 06:51] LABS: Hematocrit 25.5 % (36-46); Hemoglobin 8.5 g/dL (12.0-16.0); Lymphocytes Absolute Auto 1300 /uL (1100-4500); Mean Corpuscular HGB Conc 33.4 % (30-36); Mean Corpuscular Hemoglobin 28.5 PG (26-34); Mean Corpuscular Volume 85.3 fL (80-100); Platelet Count 755 X10^3/uL (150-400)
[2024-11-28 06:53] LABS: Add Manual Diff / Slide Review SLIDE REVIEW
[2024-11-28 07:04] LABS: Alanine Aminotransferase 20 IU/L (<35); Albumin 2.3 g/dL (3.5-5.0); Albumin Globulin Ratio 0.8 (1.0-2.8); Alkaline Phosphatase 105 U/L (38-126); Blood Urea Nitrogen 10 mg/dL (7-17); Calcium 8.4 mg/dL (8.4-10.2); Carbon Dioxide 27 mmol/L (22-32); Chloride 105 mmol/L (98-107); Estimated Glomerular Filt Rate > 60 mL/min (>60); Globulin 3.0 g/dL (1.7-4.1); Glucose 86 mg/dL (70-99); HEMOLYSIS < 15 (0-50); Magnesium 1.9 mg/dL (1.6-2.3); Potassium 3.2 mmol/L (3.4-5.1); Sodium 134 mmol/L (137-145); Total Protein 5.3 g/dL (6.3-8.2)
[2024-11-28 07:19] LABS: Anisocytosis 1+
[2024-11-28 08:00] VITALS: BP 122/56; PULSE 87; RESP 17; TEMP 35.9; O2SAT 95
[2024-11-28] MEDS: PIPERACILLIN/TAZO 3.375 GM in SODIUM CHLORIDE 0.9% 100 ML IV ×2 (09:34→16:42)
[2024-11-28] MEDS: ENOXAPARIN 40 MG/0.4 ML SYRINGE SUBCUT (09:35)
[2024-11-28] MEDS: SODIUM CHLORIDE 0.9% FLUSH 10 ML IV ×2 (10:00→21:08)
[2024-11-28] MEDS: TRAMADOL 50 MG TABLET PO ×2 (10:47→20:44)
[2024-11-28] MEDS: ACETAMINOPHEN 325 MG TABLET 975 MG PO ×3 (11:55→20:44)
[2024-11-28 12:00] VITALS: BP 116/57; PULSE 77; RESP 19; TEMP 36.9; O2SAT 96
[2024-11-28] MEDS: POTASSIUM CHLORIDE IN WATER 10 MEQ/100 ML PIGGYBACK 100 MEQ IV ×6 (12:34→19:24)
[2024-11-28 16:00] VITALS: BP 105/58; PULSE 81; RESP 17; TEMP 37.1; O2SAT 97
[2024-11-28 19:37] VITALS: BP 111/57; PULSE 93; RESP 18; TEMP 36; O2SAT 95
[2024-11-28] MEDS: TRAZODONE 50 MG TABLET PO (20:44)
[2024-11-28 23:00] VITALS: BP 128/48; PULSE 85; RESP 18; TEMP 35.8; O2SAT 96
[2024-11-29] VITALS (11 sets, daily range): BP systolic 118–155; BP diastolic 48–81; PULSE 80–95; RESP 16–20; TEMP 35.7–36.7; O2SAT 93–98
[2024-11-29] MEDS: PIPERACILLIN/TAZO 3.375 GM in SODIUM CHLORIDE 0.9% 100 ML IV ×4 (00:15→23:21)
[2024-11-29] MEDS: TRAMADOL 50 MG TABLET PO ×2 (03:12→15:04)
[2024-11-29] MEDS: HYDROMORPHONE 2 MG INJ IV ×2 (05:45→16:19)
[2024-11-29] MEDS: ONDANSETRON 4 MG/2 ML INJ IV ×3 (05:45→16:18)
[2024-11-29 08:14] LABS: Add Manual Diff / Slide Review NO; Hematocrit 24.8 % (36-46); Hemoglobin 8.2 g/dL (12.0-16.0); Lymphocytes Absolute Auto 1100 /uL (1100-4500); Mean Corpuscular HGB Conc 33.0 % (30-36); Mean Corpuscular Hemoglobin 28.5 PG (26-34); Mean Corpuscular Volume 86.3 fL (80-100); Platelet Count 798 X10^3/uL (150-400)
[2024-11-29 08:25] LABS: Alanine Aminotransferase 18 IU/L (<35); Albumin 2.1 g/dL (3.5-5.0); Albumin Globulin Ratio 0.8 (1.0-2.8); Alkaline Phosphatase 96 U/L (38-126); Blood Urea Nitrogen 13 mg/dL (7-17); Calcium 8.4 mg/dL (8.4-10.2); Carbon Dioxide 25 mmol/L (22-32); Chloride 106 mmol/L (98-107); Estimated Glomerular Filt Rate > 60 mL/min (>60); Globulin 2.6 g/dL (1.7-4.1); Glucose 82 mg/dL (70-99); HEMOLYSIS < 15 (0-50); Magnesium 1.7 mg/dL (1.6-2.3); Potassium 3.6 mmol/L (3.4-5.1); Sodium 133 mmol/L (137-145); Total Protein 4.7 g/dL (6.3-8.2)
[2024-11-29] MEDS: ENOXAPARIN 40 MG/0.4 ML SYRINGE SUBCUT (09:38)
[2024-11-29] MEDS: ACETAMINOPHEN 325 MG TABLET 975 MG PO ×2 (09:38→20:08)
[2024-11-29] MEDS: SODIUM CHLORIDE 0.9% FLUSH 10 ML IV ×2 (09:39→20:09)
[2024-11-29] MEDS: LOPERAMIDE 2 MG CAPSULE PO (10:53)
[2024-11-29] MEDS: POTASSIUM CHLORIDE IN WATER 10 MEQ/100 ML PIGGYBACK 100 MEQ IV ×4 (10:54→15:04)
[2024-11-29] MEDS: DEXTROSE 5%-0.9% NS 1,000 ML 50 ML IV (10:56)
[2024-11-29] MEDS: MAGNESIUM CHLORIDE 64 MG TABLET 128 MG PO (15:05)
[2024-11-29] MEDS: TRAZODONE 50 MG TABLET PO (20:08)
[2024-11-29] MEDS: MELATONIN 3 MG TABLET 6 MG PO (20:09)
[2024-11-30] VITALS (7 sets, daily range): BP systolic 134–146; BP diastolic 63–82; PULSE 84–91; RESP 16–22; TEMP 35.5–36.9; O2SAT 92–96
[2024-11-30] MEDS: HYDROMORPHONE 2 MG INJ IV ×3 (03:46→22:12)
[2024-11-30] MEDS: ONDANSETRON 4 MG/2 ML INJ IV ×4 (03:48→22:12)
[2024-11-30 05:18] LABS: Hematocrit 24.5 % (36-46); Hemoglobin 8.1 g/dL (12.0-16.0); Lymphocytes Absolute Auto 1300 /uL (1100-4500); Mean Corpuscular HGB Conc 33.1 % (30-36); Mean Corpuscular Hemoglobin 28.6 PG (26-34); Mean Corpuscular Volume 86.5 fL (80-100); Platelet Count 828 X10^3/uL (150-400)
[2024-11-30 05:20] LABS: Add Manual Diff / Slide Review NO
[2024-11-30 05:24] LABS: Blood Urea Nitrogen 7 mg/dL (7-17); Calcium 8.4 mg/dL (8.4-10.2); Carbon Dioxide 25 mmol/L (22-32); Chloride 106 mmol/L (98-107); Estimated Glomerular Filt Rate > 60 mL/min (>60); Glucose 92 mg/dL (70-99); HEMOLYSIS < 15 (0-50); Magnesium 1.7 mg/dL (1.6-2.3); Potassium 3.7 mmol/L (3.4-5.1); Sodium 134 mmol/L (137-145)
[2024-11-30 05:43] LABS: RBC Morphology Normal Morphology
[2024-11-30] MEDS: ENOXAPARIN 40 MG/0.4 ML SYRINGE SUBCUT (08:16)
[2024-11-30] MEDS: LOPERAMIDE 2 MG CAPSULE PO (08:17)
[2024-11-30] MEDS: ACETAMINOPHEN 325 MG TABLET 975 MG PO (08:17)
[2024-11-30] MEDS: PIPERACILLIN/TAZO 3.375 GM in SODIUM CHLORIDE 0.9% 100 ML IV ×2 (08:18→16:52)
[2024-11-30] MEDS: SODIUM CHLORIDE 0.9% FLUSH 10 ML IV ×2 (08:18→22:12)
[2024-11-30] MEDS: MAGNESIUM SULFATE 2 GM/50 ML PIGGYBACK IV (09:57)
[2024-11-30] MEDS: KETOROLAC 30 MG/ML VIAL 15 MG IV (12:21)
[2024-11-30] MEDS: ACETAMINOPHEN IV 1,000 MG/100 ML VIAL 400 MG IV ×2 (14:47→22:11)
[2024-11-30] MEDS: DEXTROSE 5%-0.9% NS 1,000 ML 50 ML IV (14:47)
[2024-11-30] MEDS: TRAZODONE 50 MG TABLET PO (22:12)
[2024-11-30] MEDS: MELATONIN 3 MG TABLET 6 MG PO (22:12)
[2024-12-01] VITALS (10 sets, daily range): BP systolic 136–148; BP diastolic 61–85; PULSE 82–93; RESP 15–20; TEMP 35.8–36.8; O2SAT 92–94
[2024-12-01] MEDS: PIPERACILLIN/TAZO 3.375 GM in SODIUM CHLORIDE 0.9% 100 ML IV ×4 (00:31→23:10)
[2024-12-01] MEDS: ONDANSETRON 4 MG/2 ML INJ IV ×3 (05:21→16:00)
[2024-12-01] MEDS: KETOROLAC 30 MG/ML VIAL 15 MG IV (05:21)
[2024-12-01 05:32] LABS: Add Manual Diff / Slide Review NO; Hematocrit 27.0 % (36-46); Hemoglobin 8.9 g/dL (12.0-16.0); Lymphocytes Absolute Auto 1400 /uL (1100-4500); Mean Corpuscular HGB Conc 33.0 % (30-36); Mean Corpuscular Hemoglobin 28.5 PG (26-34); Mean Corpuscular Volume 86.5 fL (80-100); Platelet Count 882 X10^3/uL (150-400)
[2024-12-01 05:38] LABS: Blood Urea Nitrogen 10 mg/dL (7-17); Calcium 8.7 mg/dL (8.4-10.2); Carbon Dioxide 26 mmol/L (22-32); Chloride 105 mmol/L (98-107); Estimated Glomerular Filt Rate > 60 mL/min (>60); Glucose 94 mg/dL (70-99); HEMOLYSIS < 15 (0-50); Magnesium 2.0 mg/dL (1.6-2.3); Potassium 3.3 mmol/L (3.4-5.1); Sodium 135 mmol/L (137-145)
[2024-12-01 05:57] LABS: RBC Morphology Normal Morphology
[2024-12-01] MEDS: POTASSIUM CHLORIDE IN WATER 10 MEQ/100 ML PIGGYBACK 100 MEQ IV ×4 (07:55→12:55)
[2024-12-01] MEDS: TRAMADOL 50 MG TABLET PO ×3 (07:56→21:18)
[2024-12-01] MEDS: HYDROMORPHONE 2 MG INJ IV (09:05)
[2024-12-01] MEDS: ACETAMINOPHEN IV 1,000 MG/100 ML VIAL 400 MG IV ×3 (09:06→21:16)
[2024-12-01] MEDS: LOPERAMIDE 2 MG CAPSULE PO (09:06)
[2024-12-01] MEDS: SODIUM CHLORIDE 0.9% FLUSH 10 ML IV ×2 (09:28→21:21)
[2024-12-01] MEDS: DEXTROSE 5%-0.9% NS 1,000 ML 50 ML IV (12:58)
[2024-12-01] MEDS: TRAZODONE 50 MG TABLET PO (21:18)
[2024-12-01] MEDS: MELATONIN 3 MG TABLET 6 MG PO (21:19)
[2024-12-02] VITALS (8 sets, daily range): BP systolic 117–152; BP diastolic 48–75; PULSE 87–91; RESP 16–19; TEMP 35.9–37.1; O2SAT 93–96
[2024-12-02] MEDS: HYDROMORPHONE 2 MG INJ IV (01:27)
[2024-12-02 06:16] LABS: Blood Urea Nitrogen 11 mg/dL (7-17); Calcium 8.8 mg/dL (8.4-10.2); Carbon Dioxide 28 mmol/L (22-32); Chloride 106 mmol/L (98-107); Estimated Glomerular Filt Rate > 60 mL/min (>60); Glucose 91 mg/dL (70-99); HEMOLYSIS < 15 (0-50); Potassium 3.3 mmol/L (3.4-5.1); Sodium 137 mmol/L (137-145)
[2024-12-02] MEDS: LOPERAMIDE 2 MG CAPSULE PO (08:27)
[2024-12-02] MEDS: ACETAMINOPHEN IV 1,000 MG/100 ML VIAL 400 MG IV ×3 (08:31→21:13)
[2024-12-02] MEDS: PIPERACILLIN/TAZO 3.375 GM in SODIUM CHLORIDE 0.9% 100 ML IV ×3 (08:32→23:54)
[2024-12-02 09:49] LABS: Add Manual Diff / Slide Review NO; Hematocrit 25.8 % (36-46); Hemoglobin 8.4 g/dL (12.0-16.0); Lymphocytes Absolute Auto 1300 /uL (1100-4500); Mean Corpuscular HGB Conc 32.7 % (30-36); Mean Corpuscular Hemoglobin 28.0 PG (26-34); Mean Corpuscular Volume 85.5 fL (80-100); Platelet Count 819 X10^3/uL (150-400)
[2024-12-02 10:11] LABS: Magnesium 1.7 mg/dL (1.6-2.3)
[2024-12-02] MEDS: KETOROLAC 30 MG/ML VIAL 15 MG IV ×2 (11:20→19:44)
[2024-12-02 11:39] LABS: INR 1.1 (0.9-1.3); Prothrombin Time 12.8 SECONDS (9.4-12.5)
[2024-12-02 11:42] LABS: PTT Partial Thromboplastin Tim 29 SECONDS (25.1-36.5)
[2024-12-02 12:55] LABS: RBC Morphology Normal Morphology
[2024-12-02] MEDS: MAGNESIUM SULFATE 2 GM/50 ML PIGGYBACK IV (13:23)
[2024-12-02] MEDS: POTASSIUM CHLORIDE IN WATER 10 MEQ/100 ML PIGGYBACK 100 MEQ IV ×6 (14:16→21:13)
[2024-12-02] MEDS: TRAMADOL 50 MG TABLET PO (17:38)
[2024-12-02] MEDS: TRAZODONE 50 MG TABLET PO (21:12)
[2024-12-02] MEDS: MELATONIN 3 MG TABLET 6 MG PO (21:12)
[2024-12-02] MEDS: SODIUM CHLORIDE 0.9% FLUSH 10 ML IV (21:34)
[2024-12-02] MEDS: ONDANSETRON 4 MG/2 ML INJ IV (23:54)
[2024-12-03] VITALS (25 sets, daily range): BP systolic 105–148; BP diastolic 51–75; PULSE 79–92; RESP 12–22; TEMP 35.7–37.6; O2SAT 90–99; BMI 31.7
[2024-12-03] MEDS: KETOROLAC 30 MG/ML VIAL 15 MG IV ×2 (01:50→08:03)
[2024-12-03 06:24] LABS: Blood Urea Nitrogen 10 mg/dL (7-17); Calcium 8.8 mg/dL (8.4-10.2); Carbon Dioxide 25 mmol/L (22-32); Chloride 107 mmol/L (98-107); Estimated Glomerular Filt Rate > 60 mL/min (>60); Glucose 84 mg/dL (70-99); HEMOLYSIS < 15 (0-50); Magnesium 2.0 mg/dL (1.6-2.3); Potassium 3.9 mmol/L (3.4-5.1); Sodium 136 mmol/L (137-145)
[2024-12-03 06:42] LABS: Add Manual Diff / Slide Review NO; Hematocrit 23.1 % (36-46); Hemoglobin 7.9 g/dL (12.0-16.0); Lymphocytes Absolute Auto 1500 /uL (1100-4500); Mean Corpuscular HGB Conc 34.1 % (30-36); Mean Corpuscular Hemoglobin 28.9 PG (26-34); Mean Corpuscular Volume 84.8 fL (80-100); Platelet Count 705 X10^3/uL (150-400)
[2024-12-03] MEDS: ACETAMINOPHEN IV 1,000 MG/100 ML VIAL 400 MG IV ×2 (08:08→20:49)
[2024-12-03] MEDS: LOPERAMIDE 2 MG CAPSULE PO (08:17)
[2024-12-03] MEDS: SODIUM CHLORIDE 0.9% FLUSH 10 ML IV ×2 (08:20→20:51)
[2024-12-03] MEDS: PIPERACILLIN/TAZO 3.375 GM in SODIUM CHLORIDE 0.9% 100 ML IV ×2 (08:20→15:42)
[2024-12-03] MEDS: ONDANSETRON 4 MG/2 ML INJ IV ×2 (09:37→20:56)
[2024-12-03] MEDS: MIDAZOLAM 2 MG/2 ML VIAL IV (12:45)
[2024-12-03] MEDS: fentaNYL 100 MCG/2 ML INJ IV (13:09)
[2024-12-03] MEDS: LIDOCAINE 1% 20 ML INJ (13:13)
[2024-12-03] MEDS: LACTATED RINGERS 1,000 ML 84 ML IV ×2 (15:02→17:03)
[2024-12-03] MEDS: LACTATED RINGERS 1,000 ML 100 ML IV (19:36)
[2024-12-03] MEDS: HYDROMORPHONE 2 MG INJ IV (20:56)
[2024-12-04] VITALS (8 sets, daily range): BP systolic 130–151; BP diastolic 61–77; PULSE 91–110; RESP 16–18; TEMP 35.8–36.1; O2SAT 96–99
[2024-12-04] MEDS: PIPERACILLIN/TAZO 3.375 GM in SODIUM CHLORIDE 0.9% 100 ML IV ×4 (01:00→23:45)
[2024-12-04] MEDS: HYDROMORPHONE 2 MG INJ IV ×4 (04:20→22:28)
[2024-12-04] MEDS: LACTATED RINGERS 1,000 ML 100 ML IV ×2 (04:21→15:03)
[2024-12-04 05:42] LABS: Add Manual Diff / Slide Review NO; Hematocrit 26.2 % (36-46); Hemoglobin 8.8 g/dL (12.0-16.0); Lymphocytes Absolute Auto 900 /uL (1100-4500); Mean Corpuscular HGB Conc 33.5 % (30-36); Mean Corpuscular Hemoglobin 28.5 PG (26-34); Mean Corpuscular Volume 85.0 fL (80-100); Platelet Count 749 X10^3/uL (150-400)
[2024-12-04 05:52] LABS: Blood Urea Nitrogen 7 mg/dL (7-17); Calcium 8.9 mg/dL (8.4-10.2); Carbon Dioxide 24 mmol/L (22-32); Chloride 106 mmol/L (98-107); Estimated Glomerular Filt Rate > 60 mL/min (>60); Glucose 100 mg/dL (70-99); HEMOLYSIS < 15 (0-50); Magnesium 1.9 mg/dL (1.6-2.3); Potassium 3.9 mmol/L (3.4-5.1); Sodium 137 mmol/L (137-145); Triglycerides 102 mg/dL (35-150)
[2024-12-04 05:54] LABS: Phosphorous 3.9 mg/dL (2.8-4.1)
[2024-12-04 05:59] LABS: Prealbumin 11.7 mg/dL (17.6-36.0)
[2024-12-04] MEDS: PANTOPRAZOLE 40 MG VIAL IV (10:02)
[2024-12-04] MEDS: ACETAMINOPHEN IV 1,000 MG/100 ML VIAL 400 MG IV ×3 (10:04→20:20)
[2024-12-04] MEDS: ENOXAPARIN 40 MG/0.4 ML SYRINGE SUBCUT (10:11)
[2024-12-04] MEDS: ONDANSETRON 4 MG/2 ML INJ IV ×2 (10:11→20:17)
[2024-12-04 13:01] LABS: Hematocrit 23.8 % (36-46); Hemoglobin 7.9 g/dL (12.0-16.0); Mean Corpuscular HGB Conc 33.4 % (30-36); Mean Corpuscular Hemoglobin 28.4 PG (26-34); Mean Corpuscular Volume 85.0 fL (80-100); Platelet Count 713 X10^3/uL (150-400)
[2024-12-04] MEDS: AA 5 %/CALCIUM/LYTES/DEXT 20 % 1,000 ML with MULTIVITAMIN 10 ML, TRACE ELEMENTS 1 ML, T... 42.167 ML IV ×2 (17:27→20:23)
[2024-12-04] MEDS: TPN PER PHARMACY 1 REQUEST IV (19:00)
[2024-12-04] MEDS: LACTATED RINGERS 1,000 ML 84 ML IV (19:08)
[2024-12-04] MEDS: TRAZODONE 50 MG TABLET PO (20:21)
[2024-12-04] MEDS: MELATONIN 3 MG TABLET 6 MG PO (20:21)
[2024-12-04] MEDS: SODIUM CHLORIDE 0.9% FLUSH 10 ML IV (21:56)
[2024-12-05] VITALS (8 sets, daily range): BP systolic 123–152; BP diastolic 51–68; PULSE 67–92; RESP 16–21; TEMP 35.7–35.9; O2SAT 90–98
[2024-12-05] MEDS: LACTATED RINGERS 1,000 ML 84 ML IV (03:31)
[2024-12-05 04:01] LABS: Add Manual Diff / Slide Review NO; Hematocrit 23.9 % (36-46); Hemoglobin 8.0 g/dL (12.0-16.0); Lymphocytes Absolute Auto 1100 /uL (1100-4500); Mean Corpuscular HGB Conc 33.6 % (30-36); Mean Corpuscular Hemoglobin 28.7 PG (26-34); Mean Corpuscular Volume 85.3 fL (80-100); Platelet Count 590 X10^3/uL (150-400)
[2024-12-05 04:13] LABS: Blood Urea Nitrogen 13 mg/dL (7-17); Calcium 8.8 mg/dL (8.4-10.2); Carbon Dioxide 27 mmol/L (22-32); Chloride 105 mmol/L (98-107); Estimated Glomerular Filt Rate > 60 mL/min (>60); Glucose 121 mg/dL (70-99); HEMOLYSIS < 15 (0-50); Magnesium 1.9 mg/dL (1.6-2.3); Potassium 3.6 mmol/L (3.4-5.1); Sodium 137 mmol/L (137-145)
[2024-12-05] MEDS: HYDROMORPHONE 2 MG INJ IV ×5 (04:59→22:11)
[2024-12-05] MEDS: ONDANSETRON 4 MG/2 ML INJ IV ×2 (05:24→20:06)
[2024-12-05] MEDS: ACETAMINOPHEN IV 1,000 MG/100 ML VIAL 400 MG IV ×3 (09:36→21:48)
[2024-12-05] MEDS: PANTOPRAZOLE 40 MG VIAL IV (09:38)
[2024-12-05] MEDS: PIPERACILLIN/TAZO 3.375 GM in SODIUM CHLORIDE 0.9% 100 ML IV ×3 (09:44→23:42)
[2024-12-05] MEDS: ENOXAPARIN 40 MG/0.4 ML SYRINGE SUBCUT (09:45)
[2024-12-05] MEDS: FAT EMULSIONS 50 GM/250 ML EMULSION IV (17:37)
[2024-12-05] MEDS: AA 5 %/CALCIUM/LYTES/DEXT 20 % 1,500 ML with MULTIVITAMIN 10 ML, TRACE ELEMENTS 1 ML, T... 63 ML IV (17:38)
[2024-12-05] MEDS: LACTATED RINGERS 1,000 ML 42 ML IV (17:56)
[2024-12-05] MEDS: TRAZODONE 50 MG TABLET PO (21:49)
[2024-12-05] MEDS: MELATONIN 3 MG TABLET 6 MG PO (21:49)
[2024-12-05] MEDS: SODIUM CHLORIDE 0.9% FLUSH 10 ML IV (22:12)
[2024-12-06] VITALS (8 sets, daily range): BP systolic 120–159; BP diastolic 48–66; PULSE 84–101; RESP 16–20; TEMP 35.9–36.8; O2SAT 93–97
[2024-12-06] MEDS: HYDROMORPHONE 2 MG INJ IV ×4 (05:23→23:42)
[2024-12-06 05:30] LABS: Add Manual Diff / Slide Review NO; Hematocrit 23.4 % (36-46); Hemoglobin 8.0 g/dL (12.0-16.0); Lymphocytes Absolute Auto 1300 /uL (1100-4500); Mean Corpuscular HGB Conc 34.1 % (30-36); Mean Corpuscular Hemoglobin 29.0 PG (26-34); Mean Corpuscular Volume 84.9 fL (80-100); Platelet Count 535 X10^3/uL (150-400)
[2024-12-06 05:43] LABS: Blood Urea Nitrogen 11 mg/dL (7-17); Calcium 8.7 mg/dL (8.4-10.2); Carbon Dioxide 29 mmol/L (22-32); Chloride 102 mmol/L (98-107); Estimated Glomerular Filt Rate > 60 mL/min (>60); Glucose 116 mg/dL (70-99); HEMOLYSIS < 15 (0-50); Magnesium 1.7 mg/dL (1.6-2.3); Phosphorous 2.4 mg/dL (2.8-4.1); Potassium 3.4 mmol/L (3.4-5.1); Sodium 133 mmol/L (137-145)
[2024-12-06] MEDS: PANTOPRAZOLE 40 MG VIAL IV (09:04)
[2024-12-06] MEDS: ACETAMINOPHEN IV 1,000 MG/100 ML VIAL 400 MG IV ×3 (09:08→20:11)
[2024-12-06] MEDS: ENOXAPARIN 40 MG/0.4 ML SYRINGE SUBCUT (09:09)
[2024-12-06] MEDS: TRAMADOL 50 MG TABLET PO ×2 (09:09→20:19)
[2024-12-06] MEDS: PIPERACILLIN/TAZO 3.375 GM in SODIUM CHLORIDE 0.9% 100 ML IV (09:09)
[2024-12-06] MEDS: ONDANSETRON 4 MG/2 ML INJ IV (09:17)
[2024-12-06] MEDS: SODIUM CHLORIDE 0.9% FLUSH 10 ML IV ×2 (10:17→20:19)
[2024-12-06] MEDS: AA 5 %/CALCIUM/LYTES/DEXT 20 % 1,500 ML with MULTIVITAMIN 10 ML, TRACE ELEMENTS 1 ML, T... 63 ML IV ×2 (18:18→20:20)
[2024-12-06] MEDS: LACTATED RINGERS 1,000 ML 42 ML IV (18:20)
[2024-12-06] MEDS: MELATONIN 3 MG TABLET 6 MG PO (20:13)
[2024-12-06] MEDS: TRAZODONE 50 MG TABLET PO (20:13)
[2024-12-07] VITALS (9 sets, daily range): BP systolic 112–140; BP diastolic 54–75; PULSE 82–97; RESP 15–18; TEMP 36.1–37.1; O2SAT 92–98
[2024-12-07] MEDS: HYDROMORPHONE 2 MG INJ IV ×5 (04:43→22:43)
[2024-12-07] MEDS: PANTOPRAZOLE 40 MG VIAL IV (08:20)
[2024-12-07] MEDS: SODIUM CHLORIDE 0.9% FLUSH 10 ML IV ×2 (08:21→20:43)
[2024-12-07] MEDS: ENOXAPARIN 40 MG/0.4 ML SYRINGE SUBCUT (08:22)
[2024-12-07 09:58] LABS: Blood Urea Nitrogen 10 mg/dL (7-17); Calcium 8.7 mg/dL (8.4-10.2); Carbon Dioxide 29 mmol/L (22-32); Chloride 101 mmol/L (98-107); Estimated Glomerular Filt Rate > 60 mL/min (>60); Glucose 120 mg/dL (70-99); HEMOLYSIS < 15 (0-50); Magnesium 1.7 mg/dL (1.6-2.3); Phosphorous 2.6 mg/dL (2.8-4.1); Potassium 3.5 mmol/L (3.4-5.1); Sodium 133 mmol/L (137-145)
[2024-12-07] MEDS: ONDANSETRON 4 MG/2 ML INJ IV (12:06)
[2024-12-07] MEDS: PIPERACILLIN/TAZO 3.375 GM in SODIUM CHLORIDE 0.9% 100 ML IV ×2 (14:23→22:19)
[2024-12-07] MEDS: AA 5 %/CALCIUM/LYTES/DEXT 20 % 1,500 ML with MULTIVITAMIN 10 ML, TRACE ELEMENTS 1 ML, T... 63 ML IV (18:01)
[2024-12-07] MEDS: TPN PER PHARMACY 1 REQUEST IV ×2 (18:22)
[2024-12-07] MEDS: TRAZODONE 50 MG TABLET PO (20:41)
[2024-12-07] MEDS: MELATONIN 3 MG TABLET 6 MG PO (20:41)
[2024-12-08] VITALS (7 sets, daily range): BP systolic 116–168; BP diastolic 50–78; PULSE 83–114; RESP 17–18; TEMP 36.4–36.9; O2SAT 94–96
[2024-12-08] MEDS: HYDROMORPHONE 2 MG INJ IV ×7 (03:26→23:06)
[2024-12-08 05:40] LABS: Blood Urea Nitrogen 11 mg/dL (7-17); Calcium 8.8 mg/dL (8.4-10.2); Carbon Dioxide 28 mmol/L (22-32); Chloride 102 mmol/L (98-107); Estimated Glomerular Filt Rate > 60 mL/min (>60); Glucose 119 mg/dL (70-99); HEMOLYSIS < 15 (0-50); Magnesium 1.8 mg/dL (1.6-2.3); Phosphorous 3.2 mg/dL (2.8-4.1); Potassium 3.4 mmol/L (3.4-5.1); Sodium 135 mmol/L (137-145)
[2024-12-08] MEDS: PIPERACILLIN/TAZO 3.375 GM in SODIUM CHLORIDE 0.9% 100 ML IV ×3 (05:57→22:02)
[2024-12-08] MEDS: ENOXAPARIN 40 MG/0.4 ML SYRINGE SUBCUT (08:45)
[2024-12-08] MEDS: PANTOPRAZOLE 40 MG VIAL IV (08:45)
[2024-12-08] MEDS: SODIUM CHLORIDE 0.9% FLUSH 10 ML IV ×2 (08:46→21:01)
[2024-12-08] MEDS: TRAMADOL 50 MG TABLET PO (10:46)
[2024-12-08] MEDS: AA 5 %/CALCIUM/LYTES/DEXT 20 % 1,500 ML with MULTIVITAMIN 10 ML, TRACE ELEMENTS 1 ML, T... 63.833 ML IV (17:07)
[2024-12-08] MEDS: FAT EMULSIONS 50 GM/250 ML EMULSION IV (17:07)
[2024-12-08] MEDS: LACTATED RINGERS 1,000 ML 42 ML IV (17:08)
[2024-12-08] MEDS: OXYCODONE IR 5 MG TABLET 10 MG PO ×2 (17:09→21:07)
[2024-12-08] MEDS: TPN PER PHARMACY 1 REQUEST IV (18:00)
[2024-12-08 19:11] LABS: Alanine Aminotransferase 18 IU/L (<35); Albumin 2.7 g/dL (3.5-5.0); Albumin Globulin Ratio 0.8 (1.0-2.8); Alkaline Phosphatase 110 U/L (38-126); Globulin 3.3 g/dL (1.7-4.1); HEMOLYSIS < 15 (0-50); Total Protein 6.0 g/dL (6.3-8.2)
[2024-12-08] MEDS: TRAZODONE 50 MG TABLET PO (21:00)
[2024-12-08] MEDS: MELATONIN 3 MG TABLET 6 MG PO (21:00)
[2024-12-08] MEDS: ONDANSETRON 4 MG/2 ML INJ IV (22:02)
[2024-12-09] MEDS: HYDROMORPHONE 2 MG INJ IV ×2 (02:20→05:33)
[2024-12-09 03:00] VITALS: BP 169/67; PULSE 101; RESP 18; TEMP 36.4; O2SAT 97
[2024-12-09] MEDS: PIPERACILLIN/TAZO 3.375 GM in SODIUM CHLORIDE 0.9% 100 ML IV ×2 (05:34→14:57)
[2024-12-09] MEDS: ONDANSETRON 4 MG/2 ML INJ IV ×2 (05:48→19:54)
[2024-12-09 06:32] LABS: Blood Urea Nitrogen 25 mg/dL (7-17); Calcium 9.0 mg/dL (8.4-10.2); Carbon Dioxide 25 mmol/L (22-32); Chloride 100 mmol/L (98-107); Estimated Glomerular Filt Rate 50 mL/min (>60); Glucose 126 mg/dL (70-99); HEMOLYSIS < 15 (0-50); Magnesium 1.8 mg/dL (1.6-2.3); Potassium 4.3 mmol/L (3.4-5.1); Sodium 131 mmol/L (137-145)
[2024-12-09 08:00] VITALS: BP 153/78; PULSE 99; RESP 14; TEMP 36.3; O2SAT 96
[2024-12-09] MEDS: ENOXAPARIN 40 MG/0.4 ML SYRINGE SUBCUT (09:34)
[2024-12-09] MEDS: PANTOPRAZOLE 40 MG VIAL IV (09:34)
[2024-12-09] MEDS: SODIUM CHLORIDE 0.9% FLUSH 10 ML IV ×2 (09:36→21:06)
[2024-12-09 12:00] VITALS: BP 148/61; PULSE 102; RESP 14; TEMP 36.5; O2SAT 96
[2024-12-09 16:00] VITALS: BP 106/46; PULSE 90; RESP 14; TEMP 36.2; O2SAT 96
[2024-12-09] MEDS: TPN PER PHARMACY 1 REQUEST IV (18:47)
[2024-12-09] MEDS: AA 5 %/CALCIUM/LYTES/DEXT 20 % 1,500 ML with MULTIVITAMIN 10 ML, TRACE ELEMENTS 1 ML 62.958 ML IV (18:47)
[2024-12-09] MEDS: fentaNYL 100 MCG/2 ML INJ 25 MCG IV ×2 (19:54→21:05)
[2024-12-09 19:56] VITALS: BP 101/50; PULSE 96; RESP 18; TEMP 35.8; O2SAT 93
[2024-12-09] MEDS: MELATONIN 3 MG TABLET 6 MG PO (21:05)
[2024-12-09] MEDS: METHADONE 10 MG TABLET 2.5 MG PO (21:05)
[2024-12-09] MEDS: TRAZODONE 50 MG TABLET PO (21:05)
[2024-12-09] MEDS: PIPERACILLIN/TAZO 3.375 GM in SODIUM CHLORIDE 0.9% 100 ML 2 GM IV (22:03)
[2024-12-10 00:43] VITALS: PULSE 81; RESP 16
[2024-12-10 03:05] VITALS: BP 116/52; PULSE 84; RESP 16
[2024-12-10 06:10] LABS: Blood Urea Nitrogen 16 mg/dL (7-17); Calcium 9.1 mg/dL (8.4-10.2); Carbon Dioxide 27 mmol/L (22-32); Chloride 105 mmol/L (98-107); Estimated Glomerular Filt Rate > 60 mL/min (>60); Glucose 117 mg/dL (70-99); HEMOLYSIS < 15 (0-50); Magnesium 2.0 mg/dL (1.6-2.3); Phosphorous 3.3 mg/dL (2.8-4.1); Potassium 3.8 mmol/L (3.4-5.1); Sodium 135 mmol/L (137-145)
[2024-12-10] MEDS: PIPERACILLIN/TAZO 3.375 GM in SODIUM CHLORIDE 0.9% 100 ML IV (06:14)
[2024-12-10 08:00] VITALS: BP 123/58; PULSE 82; RESP 18; TEMP 35.8; O2SAT 97
[2024-12-10] MEDS: PANTOPRAZOLE 40 MG VIAL IV (08:53)
[2024-12-10] MEDS: ENOXAPARIN 40 MG/0.4 ML SYRINGE SUBCUT (08:53)
[2024-12-10] MEDS: METHADONE 10 MG TABLET 2.5 MG PO (08:53)
[2024-12-10] MEDS: SODIUM CHLORIDE 0.9% FLUSH 10 ML IV (08:54)
[2024-12-10] MEDS: ONDANSETRON 4 MG/2 ML INJ IV ×2 (09:16→13:26)
[2024-12-10] MEDS: fentaNYL 100 MCG/2 ML INJ 25 MCG IV ×3 (10:29→14:48)
[2024-12-10] MEDS: TRAMADOL 50 MG TABLET PO (11:53)
[2024-12-10 12:00] VITALS: BP 132/57; PULSE 91; RESP 18; TEMP 35.9; O2SAT 97
== END 2024-12-10 15:32 | disposition hospice, home (50) | DRG 853 ==
LOC: ED 11-19 00:13 → AC 11-19 00:45 → ICU 11-19 06:09 → AC 11-23 14:50
PROVIDERS: Anesthesiology Critical Care Medicine; Family Medicine; Hospitalist; Internal Medicine; Internal Medicine Critical Care Medicine; Surgery; Admitting Provider Surgery; Emergency Provider Emergency Medicine; PCP Internal Medicine; Referring Provider Emergency Medicine; Visit Provider Surgery
PROC: 5A1945Z Respiratory Ventilation, 24-96 Consecutive Hours (ICD-10-PCS; CPT 49000; principal; 2024-11-19 01:30)
PROC: 0DW807Z Revision of Autologous Tissue Substitute in Small Intestine, Open Approach (ICD-10-PCS; CPT 49000; principal; 2024-12-03 15:00)
DX: A41.9 Sepsis, unspecified organism (principal); J96.00 Acute respiratory failure, unspecified whether with hypoxia or hypercapnia; K63.1 Perforation of intestine (nontraumatic); R65.21 Severe sepsis with septic shock; N17.0 Acute kidney failure with tubular necrosis; K65.9 Peritonitis, unspecified; K65.1 Peritoneal abscess; E87.20 Acidosis, unspecified; K56.609 Unspecified intestinal obstruction, unspecified as to partial versus complete obstruction; C78.6 Secondary malignant neoplasm of retroperitoneum and peritoneum; C78.7 Secondary malignant neoplasm of liver and intrahepatic bile duct; E87.1 Hypo-osmolality and hyponatremia; T81.31XA Disruption of external operation (surgical) wound, not elsewhere classified, initial encounter; K94.13 Enterostomy malfunction; I96 Gangrene, not elsewhere classified; K91.89 Other postprocedural complications and disorders of digestive system; K56.7 Ileus, unspecified; E46 Unspecified protein-calorie malnutrition; N85.8 Other specified noninflammatory disorders of uterus; I48.91 Unspecified atrial fibrillation; I48.0 Paroxysmal atrial fibrillation; G47.00 Insomnia, unspecified; D75.839 Thrombocytosis, unspecified; E87.6 Hypokalemia; C54.1 Malignant neoplasm of endometrium; D63.0 Anemia in neoplastic disease; Z68.31 Body mass index [BMI] 31.0-31.9, adult
CPT/HCPCS: 36415; 36569; 36592; 36600; 44160; 44312; 70450; 71045; 74018; 74176; 74177; 80048; 80053; 80076; 81001; 82378; 82550; 82805; 82962; 83605; 83690; 83735; 83880; 84100; 84134; 84145; 84443; 84478; 84484; 85007; 85025; 85027; 85610; 85730; 86304; 86850; 86900; 86901; 87040; 87070; 87075; 87077; 87186; 87205; 87797; 92610; 93005; 93010; 93306; 94002; 94003; 94762; 94799; 96365; 97110; 97163; 97164; 97166; 97167; 97530; 97535; 99222; 99233; 99284; 99291; A9270; B4185; B4189; J0131; J0171; J0330; J0690; J0696; J1100; J1171; J1642; J1650; J1885; J2250; J2405; J2470; J2543; J2704; J3010; J3475; J3480; J3490; J7121; P9045; Q9967